=== PATIENT | female | born 1945 | race Caucasian/White ===

== ENCOUNTER 2017-11-28 08:54 | Emergency (ER) | payer OTHER ==
[2017-11-28 09:01] VITALS: BMI 29.9
[2017-11-28] MEDS ORDERED: ACETAMINOPHEN 500 MG TABLET (FP) PO ONE (09:28)
--- NOTE | 2017-11-28 09:28 | PDOC ---
History of Present Illness - General Chief Complaint: Injury Stated Complaint: FALL Time Seen by Provider: 11/28/17 09:06 History Source: Patient Exam Limitations: No Limitations - History of Present Illness Initial Comments: 11/28/17 09:23 This is a 72 YOF with h/o IDDM, CAD with CT s/p cath with stents and weeklong ICU stay many years ago (on ASA but no other blood thinning medications), and HLD who p/w right knee pain/bruising/swelling, and left wrist pain and bruising , since suffering a ground-level fall 3 days ago without LOC. The patient and family note she tripped fell at the bottom of [place] stairs in [place] and landed on her right knee and left forearm, hitting her right chin on the ground as well. The patient notes 8/10 pain worst in the right knee, which has been worsening since the day after the fall when she walked several blocks on the leg. She has been taking Tylenol for pain but nothing else, has not iced or wrapped the knee, and has not seen her PCP or any provider about this issue. She denies symptoms preceding the fall and denies any recent dizziness, lightheadedness, headache, neck pain, chest pain, SOB, n/t /w, or other recent symptoms of illness. Past History - Past Medical History Allergies/Adverse Reactions: Allergies Allergy/AdvReac Type Severity Reaction Status Date / Time No Known Allergies Allergy Verified 11/28/17 08:56 Home Medications: Ambulatory Orders Aspirin [ASA -] 81 mg PO DAILY 11/28/17 Atorvastatin Ca [Lipitor] 10 mg PO HS 11/28/17 Duloxetine HCl 30 mg PO DAILY 11/28/17 Esomeprazole Magnesium 40 mg PO DAILY 11/28/17 Liraglutide [Victoza -] 0.6 mg SQ DAILY@0700 11/28/17 Metoprolol Succinate [Toprol Xl] 25 mg PO DAILY 11/28/17 Olmesartan Medoxomil 20 mg PO DAILY 11/28/17 Sitagliptin Phos/Metformin HCl [Janumet 50-1,000 mg Tablet] 1 each PO BID COPD: No Diabetes: Yes HTN: Yes Hypercholesterolemia: Yes - Suicide/Smoking/Psychosocial Hx Smoking History: Never smoked Information on smoking cessation initiated: No Hx Alcohol Use: No Drug/Substance Use Hx: No Substance Use Type: None Review of Systems - Review of Systems Able to Perform ROS?: Yes Constitutional: No: Chills, Fever, Unexplained wgt Loss HEENTM: No: Nose Congestion, Throat Pain Respiratory: No: Cough, Shortness of Breath Cardiac (ROS): No: Chest Pain, Palpitations, Syncope ABD/GI: No: Constipated, Diarrhea, Nausea, Vomiting : No: Burning, Dysuria Musculoskeletal: Yes: Joint Pain (right knee), Joint Swelling (right knee). No : Back Pain, Neck Pain Integumentary: Yes: Bruising (right knee and valerio, left distal forearm). No: Rash Neurological: No: Headache, Numbness, Tingling, Weakness, Unsteady Gait, Dizziness Endocrine: No: Unexplained Weight Gain, Unexplained Weight Loss *Physical Exam - Vital Signs Last Vital Signs Temp Pulse Resp BP Pulse Ox 99.0 F 110 H 18 192/87 97 11/28/17 08:57 11/28/17 08:57 11/28/17 08:57 11/28/17 08:57 11/28/17 08:57 - Physical Exam General Appearance: Yes: Nourished, Appropriately Dressed, Other (nontoxic and well appearing adult female accompanied by her sons, Romanian speaking, answers appropriately, appears comfortable at rest but winces a bit with repositioning her right knee). No: Apparent Distress HEENT: positive: EOMI, Normal Voice, Hearing Grossly Normal. negative: Scleral Icterus (R), Scleral Icterus (L), Nasal Congestion Neck: positive: Trachea midline, Supple. negative: Tender, Rigid Respiratory/Chest: positive: Lungs Clear, Normal Breath Sounds. negative: Respiratory Distress, Crackles, Rhonchi, Stridor, Wheezing Cardiovascular: positive: Regular Rhythm, Regular Rate. negative: Murmur Gastrointestinal/Abdominal: positive: Normal Bowel Sounds, Soft. negative: Tender, Organomegaly, Pulsatile Mass, Guarding Musculoskeletal: positive: Normal Inspection. negative: Decreased Range of Motion, Vertebral Tenderness Extremity: positive: Normal Capillary Refill, Other (right knee effusion + ballottment, no ligamentous instability to anterior/posterior drawers or varus/ valgus stress, mild but widespread ecchymosis from superior joint line to mid- valerio anteriorly (not circumferential), unable to bend past 90 degrees 2/2 pain, otherwise no deformity, compartments soft, pulses intact, no neurological changes, distally wwp; Right anterior distal 1/3 forearm with 3x3cm ecchymosis which appears to be healing well, no deformity, no snuffbox tenderness, radial pulses 2+ and symmetric, distally neurovascularly intact). negative: Cyanosis Integumentary: positive: Normal Color, Dry, Warm, Ecchymosis (right knee and anterior tibial area, left anterior distal forearm). 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 negative: Facial Droop, Numbness, Sensory Deficit, Confused, Disoriented Medical Decision Making - Medical Decision Making Pt p/w knee pain and swelling. Initial Vital Signs Temp Pulse Resp BP Pulse Ox 99.0 F 110 H 18 192/87 97 11/28/17 08:57 11/28/17 08:57 11/28/17 08:57 11/28/17 08:57 11/28/17 08:57 Exam: As noted in Physical Exam section. DDX IBNLT: effusion (e.g. 2/2 osteoarthritis, overuse), hemarthrosis, prepatellar bursitis, gout, pseudogout, septic arthritis, edema (e.g. from CHF exacerbation or PVD), gonorrhea, necrotizing soft tissue infection, DVT, superficial venous thrombosis, popliteal cyst (wwo rupture), etc. W/U ordered: XR right knee TX ordered: Tylenol 975 mg EKG: Reviewed; results as noted in ECG Review section. Knee XR: No fracture, dislocation, or other bony abnormality Reassessment: Patient states pain improved, comfortable going home. Vital Signs Temperature 98.7 F 11/28/17 10:59 Pulse Rate 100 H 11/28/17 10:59 Respiratory Rate 18 11/28/17 10:59 Blood Pressure 178/91 11/28/17 10:59 O2 Sat by Pulse Oximetry (%) 98 11/28/17 10:59 DISCHARGE Knee immobilizer placed, subsequently distally NV intact. Crutches given and patient instructed on proper use. Patient instructed in proper therapy with RICE. The Pt has gotten significant relief of symptoms with ED medications. Workup is not concerning for emergency-level pathology at this time. The Pt is appropriate for discharge with close outpatient follow up. They are comfortable with this plan and will follow up with their PCP in 1-3 days. Orthopedic referral info given and patient instructed to follow up with them for any further imaging needed. Specific return precautions are discussed and they will come back to the ER if necessary. *DC/Admit/Observation/Transfer Diagnosis at time of Disposition: Fall from ground level Knee injury Qualifiers: Encounter type: initial encounter Laterality: right Qualified Code(s): S89.91XA - Unspecified injury of right lower leg, initial encounter - Discharge Dispostion Disposition: HOME Condition at time of disposition: Stable Decision to Admit order: No - Referrals Referrals: Cristhian Motta MD [Primary Care Provider] - Cheo Phan MD [Staff Physician] - - Patient Instructions Printed Discharge Instructions: DI for Knee Pain Additional Instructions: You were seen in the ER for a fall and a knee injury. We did an exam and an X- ray, which did not show any fracture or other problems with the bones. After our assessment, we do not believe you are having a medical emergency at this time, and we believe you are safe to go home. Use RICE therapy (rest, ice, compression, elevation) and take Tylenol for the pain. You can use crutches if you need to, and you can bear weight on the right knee as your pain allows. Please follow up with your regular PCP in 1-3 days. Please also follow up with our orthopedist. We are giving you referral information in this information packet. Please call their clinic, tell them you were seen in the ER, and tell them you need a follow-up. If you have any new or worsening symptoms, please come back to the ER at any time (24 hours a day). If you are having severe or life threatening symptoms, or symptoms that make it unsafe to drive or have someone drive you, please call 911. Usted ferguson visto en la gordon de emergencias por arin cada y porque se lastimo la rodilla. Hicimos un examen y arin placa. No tiene ninguna fractura ni otra problema de los huesos. Despus de nuestra evaluacin, no creemos que tiene arin emergencia mdica en michele momento, y creemos que est seguro salir a almeida casa. Usa reposo, hielo, compresin, y elevacin de la pierna, y tome Tylenol para el dolor. Debe usar muletas, y puede soportar el peso en la rodilla si lo permita almeida dolor. Por favor patrice un vahid con almeida doctor regular en 1-3 lee. Por favor, tambin patrice un vahid con nuestro ortopedista. Le dimos la informacin de referencia en michele [place]. Llame a almeida clnica, dgales que lo vieron en la gordon de emergencias y dgales que necesita arin. Si tiene sntomas nuevos o que empeoran, vuelva a la gordon de emergencias en cualquier momento ( las 24 horas del da). Si tiene sntomas graves o que amenazan la magalis, o sntomas que hacen que sea inseguro conducir o que alguien lo lleve, llame al 911. Print Language: SAMI - Post Discharge Activity
[2017-11-28] MEDS ORDERED: ACETAMINOPHEN 325 MG TABLET (FP) ONE (09:35)
--- NOTE | 2017-11-28 09:47 | PDOC ---
Attending Attestation - Resident Resident Name: Radha Rock - ED Attending Attestation I have performed the following: I have examined & evaluated the patient, The case was reviewed & discussed with the resident, I agree w/resident's findings & plan, Exceptions are as noted - HPI HPI: 72 yo F history DM, CAD, HL presents with R knee pain and bruising s/p fall 3 days ago. Fall was mechanical. She is taking tylenol for pain and applying warm compresses, but still has swelling and pain. - Physicial Exam PE: GENERAL: Awake, alert, and fully oriented, in no acute distress HEAD: No signs of trauma EYES: PERRLA, EOMI, sclera anicteric, conjunctiva clear ENT: Auricles normal inspection, hearing grossly normal, nares patent, oropharynx clear without exudates. Moist mucosa NECK: Normal ROM, supple, no lymphadenopathy, JVD, or masses LUNGS: Breath sounds equal, clear to auscultation bilaterally. No wheezes, and no crackles HEART: Regular rate and rhythm, normal S1 and S2, no murmurs, rubs or gallops ABDOMEN: Soft, nontender, normoactive bowel sounds. No guarding, no rebound. No masses EXTREMITIES: R knee with significant nonpitting edema, ecchymosis, dec ROM due to pain. +Catherine's test. MCL/LCL/ACL/PCL all intact. Remainder of extremities with normal range of motion, no edema. No clubbing or cyanosis. No cords, erythema, or tenderness NEUROLOGICAL: Cranial nerves II through XII grossly intact. Normal speech, motor and sensation intact. SKIN: Warm, Dry, normal turgor, no rashes or lesions noted - Medical Decision Making Pt with ecchymosis and swelling c/w internal derangement of the knee, likely meniscus injury. No signs of septic joint on exam, and this is less likely in light of history. Immobilizer placed. Crutch trained. Ortho f/u.
[2017-11-28 11:02] VITALS: BP 178/91; PULSE 100; TEMP 98.7
== END 2017-11-28 11:02 | disposition home or self-care (01) ==
LOC: JER 08:54
DX: S89.81XA Other specified injuries of right lower leg, initial encounter (principal); W10.8XXA Fall (on) (from) other stairs and steps, initial encounter; Y93.89 Activity, other specified; Y92.814 Boat as the place of occurrence of the external cause; Y99.8 Other external cause status; I25.2 Old myocardial infarction; I25.10 Atherosclerotic heart disease of native coronary artery without angina pectoris; Z95.1 Presence of aortocoronary bypass graft; Z95.5 Presence of coronary angioplasty implant and graft; I10 Essential (primary) hypertension; E11.9 Type 2 diabetes mellitus without complications; Z79.4 Long term (current) use of insulin; Z79.84 Long term (current) use of oral hypoglycemic drugs; E78.00 Pure hypercholesterolemia, unspecified; Z79.82 Long term (current) use of aspirin
CPT/HCPCS: 73562-TC-RT-FY; 99282-25